=== PATIENT | female | born 1940 | race Two or more races ===

== ENCOUNTER 2020-02-05 14:41 | Emergency (ER) | payer SELFPAY ==
[~2020-02-05] VITALS: Ht 157.5 cm; Wt 68.0 kg
--- NOTE | 2020-02-05 15:30 | RAD ---
PORTABLE CHEST 1V History: Reason: SOA / Spl. Instructions: / History: Comparison: None. Findings: No consolidation or pleural effusion. Normal heart size. No pneumothorax. Impression: 1. No acute cardiopulmonary process. Electronically signed by: Bucky Morocho DO (02/05/2020 3:27 PM) [id number]
[2020-02-05 15:52] LABS: BASO # 0.1 x10^3/uL (0.0-0.2); BASO % 1 % (0-3); EOS # 0.2 x10^3/uL (0.0-0.7); EOS % 2 % (0-3); HEMATOCRIT 38.9 % (36.0-47.0); LYMPH # 1.7 x10^3/uL (1.0-4.8); LYMPH % 21 % (24-48); MEAN CORPUSCULAR HEMOGLOBIN 34 pg (25-35); MEAN CORPUSCULAR HGB CONC 36 g/dL (31-37); MEAN CORPUSCULAR VOLUME 94 fL (79-100); MONO # 0.5 x10^3/uL (0.0-1.1); MONO % 7 % (0-9); NEUT # 5.8 x10^3/uL (1.8-7.7); NEUT % 70 % (31-73); PLATELET COUNT 170 x10^3/uL (140-400); RED BLOOD COUNT 4.12 x10^6/uL (3.50-5.40); RED CELL DISTRIBUTION WIDTH 12.9 % (11.5-14.5); WHITE BLOOD COUNT 8.2 x10^3/uL (4.0-11.0)
[2020-02-05 15:53] LABS: BILIRUBIN,URINE NEGATIVE (NEG); CLARITY,URINE CLEAR; COLOR,URINE YELLOW; NITRITE,URINE NEGATIVE (NEG); PH,URINE 7.5 (<5.0-8.0); PROTEIN,URINE NEGATIVE (NEG-TRACE)
[2020-02-05 16:05] LABS: BACTERIA,URINE FEW /HPF (0-FEW); RBC,URINE 0 /HPF (0-2); WBC,URINE OCC /HPF (0-4)
--- NOTE | 2020-02-05 16:07 | PHYS DOC ---
Past Medical History Past Medical History: Diabetes-Type II, Hypertension (CAROLE PORTILLO HIDE AND SKIN CLASSER) Past Surgical History: No Surgical History (CAROLE PORTILLO HIDE AND SKIN CLASSER) Smoking Status: Never Smoker Alcohol Use: None (CAROLE PORTILLO APRN) General Adult EDM: Chief Complaint: SHORTNESS OF BREATH HPI: HPI: Patient is a 79 year old female who presents with states for the last 16 days when she goes to stand up she gets dizzy and feels like she is going to fall. She states today that she began having some shortness of breath and left arm numbness. Patient states that her recently. She also states that she feels " swollen from her neck up to her head". She states the shortness of air started today. She states she is also been having more frequent urination than usual. She states she always has some frequency of urination due to her diabetes. She states that this time she has no pain but her head just" feels weird". She states that the room is not spinning she does not currently feel dizzy. She states she does have fatigue. Patient states that she does not use a cane or a walker at home. She states she does not smoke or use alcohol. She states she takes a baby aspirin a day. She has a history of high cholesterol, diabetes, hypertension, osteoporosis. Patient denies nausea, vomiting, abdominal pain, cough, fever, chest pain, abdominal pain, headache, diarrhea, constipation, vision changes, focal weakness. (CAROLE PORTILLO HIDE AND SKIN CLASSER) Review of Systems: Review of Systems: Constitutional: Denies fever or chills. [] Eyes: Denies change in visual acuity. [] HENT: Denies nasal congestion or sore throat. [] Respiratory: Denies cough. +shortness of breath. [] Cardiovascular: Denies chest pain or edema. [] GI: Denies abdominal pain, nausea, vomiting, bloody stools or diarrhea. [] : Denies dysuria. [] Musculoskeletal: Denies back pain or joint pain. [] Integument: Denies rash. [] Neurologic: Denies headache, focal weakness or sensory changes. + Dizziness, + numbness Endocrine: Denies polyuria or polydipsia. [] Lymphatic: Denies swollen glands. [] Psychiatric: Denies depression or anxiety. [] (BAFCAROLE AVINA HIDE AND SKIN CLASSER) Heart Score: Risk Factors: Risk Factors: DM, Current or recent (<one month) smoker, HTN, HLP, family history of CAD, obesity. Risk Scores: Score 0 - 3: 2.5% MACE over next 6 weeks - Discharge Home Score 4 - 6: 20.3% MACE over next 6 weeks - Admit for Clinical Observation Score 7 - 10: 72.7% MACE over next 6 weeks - Early Invasive Strategies ([facility] Allergies: Allergies: Allergies Coded Allergies Type Severity Reaction Last Updated Verified No Known Drug Allergies 02/05/20 No ([facility] Physical Exam: PE: Constitutional: Well developed, well nourished, no acute distress, non-toxic appearance. [] HENT: Normocephalic, atraumatic, bilateral external ears normal, oropharynx moist, no oral exudates, nose normal. [] Eyes: PERRLA, EOMI, conjunctiva normal, no discharge. [] Neck: Normal range of motion, no tenderness, supple, no stridor. [] Cardiovascular:Heart rate regular rhythm, no murmur [] Lungs & Thorax: Bilateral breath sounds clear to auscultation [] Abdomen: Bowel sounds normal, soft, no tenderness, no masses, no pulsatile masses. [] Skin: Warm, dry, no erythema, no rash. [] Back: No tenderness, no CVA tenderness. [] Extremities: No tenderness, no cyanosis, no clubbing, ROM intact, no edema. [] Neurologic: Alert and oriented X 3, normal motor function, normal sensory function, no focal deficits noted. [] Psychologic: Affect normal, judgement normal, mood normal. [] ([facility] [place],CAROLE Chavez HIDE AND SKIN CLASSER) Current Patient Data: Labs: Laboratory Tests Test 02/05/20 15:45 White Blood Count 8.2 x10^3/uL (4.0-11.0) Red Blood Count 4.12 x10^6/uL (3.50-5.40) Hemoglobin 14.0 g/dL (12.0-15.5) Hematocrit 38.9 % (36.0-47.0) Mean Corpuscular Volume 94 fL (79-100) Mean Corpuscular Hemoglobin 34 pg (25-35) Mean Corpuscular Hemoglobin Concent 36 g/dL (31-37) Red Cell Distribution Width 12.9 % (11.5-14.5) Platelet Count 170 x10^3/uL (140-400) Neutrophils (%) (Auto) 70 % (31-73) Lymphocytes (%) (Auto) 21 % (24-48) L Monocytes (%) (Auto) 7 % (0-9) Eosinophils (%) (Auto) 2 % (0-3) Basophils (%) (Auto) 1 % (0-3) Neutrophils # (Auto) 5.8 x10^3/uL (1.8-7.7) Lymphocytes # (Auto) 1.7 x10^3/uL (1.0-4.8) Monocytes # (Auto) 0.5 x10^3/uL (0.0-1.1) Eosinophils # (Auto) 0.2 x10^3/uL (0.0-0.7) Basophils # (Auto) 0.1 x10^3/uL (0.0-0.2) Laboratory Tests 02/05/20 15:45 Vital Signs: Vital Signs Date Time Temp Pulse Resp B/P (MAP) Pulse Ox O2 Delivery O2 Flow Rate FiO2 02/05/20 15:25 97.9 54 18 152/62 (92) 99 Room Air 97.9 (CAROLE PORTILLO APRN) EKG: EK and read by Dr. Bravo as Sinus Rhythm and no STEMI (CAROLE PORTILLO APRN) Radiology/Procedures: Radiology/Procedures: [] Impression: [facility] [address] [place] [address] IMAGING REPORT Signed PATIENT: KAMRON STEWARDACCOUNT: [id number] : 1940 LOCATION: ER AGE: 79 SEX: F EXAM STATUS: PRE ER ORD. PHYSICIAN: CAROLE PORTILLO APRN REASON: SOA PROCEDURE: PORTABLE CHEST 1V PORTABLE CHEST 1V History: Reason: SOA / Spl. Instructions: / History: Comparison: None. Findings: No consolidation or pleural effusion. Normal heart size. No pneumothorax. Impression: 1. No acute cardiopulmonary process. Electronically signed by: Bucky Morocho DO (02/05/2020 3:27 PM) [id number] DICTATED and SIGNED BY: BUCKY MOROCHO DO DATE: 02/05/20 1527 [facility] [address] [place] [address] IMAGING REPORT Signed PATIENT: KAMRON STEWARDACCOUNT: [id number] : 1940 LOCATION: ER AGE: 79 SEX: F EXAM STATUS: PRE ER ORD. PHYSICIAN: CAROLE PORTILLO APRN REASON: DIZZINESS PROCEDURE: CT HEAD WO CONTRAST Exam: CT head INDICATION: Dizziness TECHNIQUE: Sequential axial images through the head were obtained without the administration of IV contrast. Comparisons: None FINDINGS: No focal parenchymal lesion or hemorrhage is identified. There is no midline shift or sulcal effacement. No acute vascular territory infarction is identified. Khan-white distinction is preserved. The ventricular system is within normal limits without compression hydrocephalus. The basal cisterns are well maintained. The visualized portions of the paranasal sinuses and mastoid air cells are well-pneumatized. No acute fractures. IMPRESSION: No acute intracranial abnormality. Exposure: One or more of the following in the visualized dose reduction techniques were utilized for this examination: 1. Automated exposure control 2. Adjustment of the MA and/or KV according to patient size Use of iterative of reconstructive technique Electronically signed by: Amanda Garcia MD (02/05/2020 4:05 PM) [facility]ENT[facility] DICTATED and SIGNED BY: AMANDA GARCIA MD DATE: 02/05/20 1605 (CAROLE PORTILLO APRN) Course & Med Decision Making: Course & Med Decision Making Pertinent Labs and Imaging studies reviewed. (See chart for details) See HPI. No peripheral edema in any extremities. Lungs are clear to auscultation all lobes. Vital signs are within normal limits. Speaks in full clear sentences. Alert and oriented x4. Patient is Greenlandic-speaking and box spring frame builder phone is used. EKG shows sinus rhythm and no STEMI. Abdomen is soft and nontender. Skin is pink warm and dry. NIH is negative. Patient sensations are intact and equal. Finger-nose to finger is intact. Blood work is unremarkable. Urinalysis shows no infection. Chest x-ray is normal. EKG shows no findings. Orthostatics normal. Patient is gotten up by the nurse to walk and she does have a steady gait. Patient states that she is not dizzy but she is short of breath. Patient does put her hand up to her chest and denies pain but just soa. O2 saturation did not go down while ambulating. Patient will be brought in to rule out ACS due to her age and her continued shortness of breath. Patient admitted to the hospital by Hospitalist. [] (CAROLE PORTILLO APRN) Dragon Disclaimer: Dragon Disclaimer: This electronic medical record was generated, in whole or in part, using a voice recognition dictation system. (CAROLE PORTILLO APRN) NIHSS Stroke Scale NIH Stroke Scale: NIH Stroke Scale Response (Comments) Value Level of Consciousness: 0 Alert/Responsive 0 LOC Questions: 0 Answers both correctly 0 LOC Commands: 0 Performs both tasks 0 Best Gaze: 0 Normal 0 Visual: 0 No visual loss 0 Facial Palsy: 0 Normal, symmetrical 0 Motor - Left Arm 0 No drift 0 Motor - Right Arm 0 No drift 0 Motor - Left Leg 0 No drift 0 Motor: Right Leg 0 No drift 0 Limb Ataxia: 0 Absent 0 Sensory: 0 No loss 0 Best Language: 0 Normal 0 Dysathria: 0 Normal 0 Extinction and Inattention: 0 Normal 0 Total 0 Departure Departure Impression: Primary Impression: Dizzinesses Disposition: ADMITTED INPT THIS HOSP Admitting Physician: ROHAN (CAROLE PORTILLO APRN) Condition: STABLE Attending Signature Attending Signature I have reviewed the non-physician practitioner's documentation, personally taken the patient's history, performed an exam and agree with the physical findings, clinical impression, and management plan. (MIRI BRAVO DO) CAROLE PORTILLO APRN Feb 05, 2020 16:07 MIRI BRAVO DO Feb 05, 2020 17:44
[2020-02-05 16:10] LABS: CALCIUM 9.1 mg/dL (8.5-10.1); CREATININE 0.9 mg/dL (0.6-1.0); GFR 60.7; POTASSIUM 3.7 mmol/L (3.5-5.1)
[2020-02-05 16:15] LABS: ALBUMIN 3.7 g/dL (3.4-5.0); ALBUMIN/GLOBULIN RATIO 1.2 (1.0-1.7); TOTAL BILIRUBIN 0.5 mg/dL (0.2-1.0); TOTAL PROTEIN 6.9 g/dL (6.4-8.2)
[2020-02-05] MEDS ORDERED: methylPREDNISolone SOD SUCC PF 40 MG/ML VIAL. IV ONE (17:15)
[2020-02-05] MEDS ORDERED: ALBUTEROL SULFATE 2.5 MG/3 ML NEBU. NEB ONE (17:15)
[2020-02-05] MEDS ORDERED: guaiFENesin ORAL 200 MG/10 ML LIQUID. PO PRN (17:45)
[2020-02-05] MEDS ORDERED: DOCUSATE SODIUM 100 MG CAPSULE. PO PRN (17:45)
[2020-02-05] MEDS ORDERED: MECLIZINE HCL 12.5 MG TABLET. PO PRN (17:45)
[2020-02-05] MEDS ORDERED: ALBUTEROL SULFATE 2.5 MG/3 ML NEBU. NEB PRN (17:45)
[2020-02-05] MEDS ORDERED: LORazepam 0.5 MG TABLET PO PRN (17:45)
[2020-02-05] MEDS ORDERED: ACETAMINOPHEN 325 MG TABLET. PO PRN (17:45)
[2020-02-05] MEDS ORDERED: ONDANSETRON PF 4 MG/2 ML VIAL. IV PRN (17:45)
[2020-02-05] MEDS ORDERED: ZOLPIDEM 5 MG TABLET. PO PRN (17:45)
[2020-02-05 18:30] VITALS: BP 157/72
[2020-02-05] MEDS ORDERED: MIRT15TA90 PO (18:34)
--- NOTE | 2020-02-05 18:42 | PDOC2 ---
CONSULT Date of Consult Date of Consult DATE: 02/05/20 TIME: 18:34 Reason for Consult Reason for Consult: Dizziness Identification/Chief Complaint Chief Complaint I felt suffocated Source Source: Chart review, Patient History of Present Illness Reason for Visit: Patient is a 79 year old female with no significant past medical history who unfortunately just lost her about 1 week ago. Patient comes today to the emergency department brought by her family after having the sensation that she could not breathe while eating. The patient denied any dysphagia odynophagia she did not present slurred speech she did not have facial drooping. The patient had been seen at [facility] earlier in the day due to the similar symptoms that she describes as not being able to take a deep breath and a sensation of impending doom in her chest that is brought upon memories of her . The patient misses her very much and gets teary-eyed very quickly when asked about him. During my interview the patient denied any suicidal thoughts, she just expresses missing her quite a lot. The patient denied headache blurred vision no chest pain no palpitations she does referred that chest discomfort that she feels more of a nauseous feeling in her chest due to anxiety. The patient denied any ringing in ears she does not have an unsteady gait report from ED SCIENTIFIC INFORMATICS LEADER suggested that the patient may be having dizziness nevertheless when questioned about feeling this sensation of room spinning the patient denied [id number] was intact [id number] was intact the patient did not present any nystagmus on physical examination. She did not exhibit any focal neurological deficits of concern. She denied nausea vomiting no diarrhea no urinary symptoms were reported either. Laboratory data was reviewed and is absolutely normal except for a glycemia of 136 which more than likely was after she was brought from her house while having her meal. I have spoken with her family members who were at the waiting area informed her about the results and wishes of the patient to be going home instead of being ad mitted to the hospital. Signs and symptoms of concern and when to seek medical attention were discussed with the family, side effects of the medication were discussed as well. We will provide the patient with a prescription for Remeron 15 mg at bedtime which should help with mood over the next couple weeks while she endures her bereavement process. Past Medical History Cardiovascular: No pertinent hx Pulmonary: No pertinent hx GI: No pertinent hx Heme/Onc: No pertinent hx Hepatobiliary: No pertinent hx Psych: No pertinent hx Musculoskeletal: low back pain Rheumatologic: No pertinent hx Infectious disease: No pertinent hx ENT: No pertinent hx Renal/: No pertinent hx Past Surgical History Past Surgical History: No pertinent history Family History Family History: No Significant Social History No ALCOHOL: none Drugs: None Lives: with Family Domestic Violence: Neg Current Problem List Problem List Problems Medical Problems: (1) Dizzinesses Status: Acute Current Medications Current Medications Current Medications Albuterol Sulfate (Ventolin Neb Soln) 2.5 mg 1X ONCE NEB Last administered on 02/05/20at 17:39; Start 02/05/20 at 17:15; Stop 02/05/20 at 17:16; Status DC Methylprednisolone Sodium Succinate (SOLU-Medrol 40MG VIAL) 80 mg 1X ONCE IV ; Start 02/05/20 at 17:15; Stop 02/05/20 at 17:16; Status DC Ondansetron HCl (Zofran) 4 mg PRN Q4HRS PRN IV NAUSEA/VOMITING; Start 02/05/20 at 17:45 Zolpidem Tartrate (Ambien) 5 mg PRN QHS PRN PO INSOMNIA; Start 02/05/20 at 17:45 Acetaminophen (Tylenol) 650 mg PRN Q4HRS PRN PO TEMP OVER 100.4F OR MILD PAIN; Start 02/05/20 at 17:45 Docusate Sodium (Colace) 100 mg PRN BID PRN PO HARD STOOLS; Start 02/05/20 at 17:45 Albuterol Sulfate (Ventolin Neb Soln) 2.5 mg PRN Q4HRS PRN NEB SHORTNESS OF BREATH; Start 02/05/20 at 17:45 Guaifenesin (Robitussin) 200 mg PRN Q4HRS PRN PO COUGH; Start 02/05/20 at 17:45 Lorazepam (Ativan) 0.5 mg PRN Q4HRS PRN PO ANXIETY / AGITATION; Start 02/05/20 at 17:45 Meclizine HCl (Antivert) 12.5 mg Q6HRS PRN PO dizziness; Start 02/05/20 at 17:45 Active Scripts Active Mirtazapine 15 Mg Tab.rapdis 1 Tab PO QHS 30 Days Allergies Allergies: Coded Allergies: No Known Drug Allergies (Unverified , 02/05/20) ROS General: No: Chills, Night Sweats, Fatigue, Malaise, Appetite, Other PSYCHOLOGICAL ROS: No: Anxiety, Behavioral Disorder, Concentration difficultie, Decreased libido, Depression, Disorientation, Hallucinations, Hostility, Irritablity, Memory difficulties, Mood Swings, Obsessive thoughts, Physical abuse, Sexual abuse, Sleep disturbances, Suicidal ideation, Other Eyes: No Blurry vision, No Decreased vision, No Double vision, No Dry eyes, No Excessive tearing, No Eye Pain, No Itchy Eyes, No Loss of vision, No Photophobia, No Scotomata, No Uses contacts, No Uses glasses, No Other HEENT: No: Heacaches, Visual Changes, Hearing change, Nasal congestion, Nasal discharge, Oral lesions, Sinus pain, Sore Throat, Epistaxis, Sneezing, Snoring, Tinnitus, Vertigo, Vocal changes, Other ALLERGY AND IMMUNOLOGY: No: Hives, Insect Bite Sensitivity, Itchy/Watery Eyes, Nasal Congestion, Post Nasal Drip, Seasonal Allergies, Other Hematological and Lymphatic: No: Bleeding Problems, Blood Clots, Blood Transfusions, Brusing, Night Sweats, Pallor, Swollen Lymph Nodes, Other ENDOCRINE: No: Breast Changes, Galactorrhea, Hair Pattern Changes, Hot Flashes, Malaise/lethargy, Mood Swings, Palpitations, Polydipsia/polyuria, Skin Changes, Temperature Intolerance, Unexpected Weight Changes, Other Breast: No New/Changing Breast Lumps, No Nipple changes, No Nipple discharge, No Other Respiratory: No: Cough, Hemoptysis, Orthopnea, Pleuritic Pain, Shortness of breath, SOB with excertion, Sputum Changes, Stridor, Tachypnea, Wheezing, Other Cardiovascular: No Chest Pain, No Palpitations, No Orthopnea, No Paroxysmal Noc. Dyspnea, No Edema, No Lt Headedness, No Other Gastrointestinal: No Nausea, No Vomiting, No Abdominal Pain, No Diarrhea, No Constipation, No Melena, No Hematochezia, No Other Genitourinary: No Dysuria, No Frequency, No Incontinence, No Hematuria, No Retention, No Discharge, No Urgency, No Pain, No Flank Pain, No Other, No , No , No , No , No , No , No Musculoskeletal: No Gait Disturbance, No Joint Pain, No Joint Stiffness, No Joint Swelling, No Muscle Pain, No Muscular Weakness, No Pain In:, No Swelling In:, No Other Neurological: No Behavorial Changes, No Bowel/Bladder ControlChng, No Confusion, No Dizziness, No Gait Disturbance, No Headaches, No Impaired Coord/balance, No Memory Loss, No Numbness/Tingling, No Seizures, No Speech Problems, No Tremors, No Visual Changes, No Weakness, No Other Skin: No Dry Skin, No Eczema, No Hair Changes, No Lumps, No Mole Changes, No Mottling, No Nail Changes, No Pruritus, No Rash, No Skin Lesion Changes, No Other, No Acne Physical Exam Physical Exam Gen.: well-developed well-nourished in no apparent distress Head: Normal shape atraumatic Eyes: Pupils equal reactive to light and accommodation, normal conjunctivae and lids Ears: Normal shape Nose: Normal shape no trauma Mouth: No exudates of the back of throat no thrush no lesions Neck: Supple no JVD no carotid bruit or lymphadenopathy no thyromegaly Chest: Lungs clear to auscultation with good inspiratory effort no crackles rales or rhonchi Cardiovascular: S1-S2 regular rhythm no murmurs gallops or rubs Abdomen: Bowel sounds present soft nontender no hepatosplenomegaly appreciated sign Extremities: No clubbing no cyanosis no edema peripheral pulses palpated bilaterally Neurological: Alert awake oriented in person time place and situation, cranial nerves II through XII intact, no motor or sensory deficits appreciated Psych: Appropriate mood, cooperative Vitals VITALS Vital Signs Date Time Temp Pulse Resp B/P (MAP) Pulse Ox O2 Delivery O2 Flow Rate FiO2 02/05/20 17:41 96 Room Air 02/05/20 15:25 97.9 54 18 152/62 (92) 97.9 Labs Labs Laboratory Tests Test 02/05/20 15:00 02/05/20 15:45 Urine Collection Type Unknown Urine Color Yellow Urine Clarity Clear Urine pH 7.5 (<5.0-8.0) Urine Specific [place] <=1.005 (1.000-1.030) Urine Protein Negative mg/dL (NEG-TRACE) Urine Glucose (UA) Negative mg/dL (NEG) Urine Ketones (Stick) Negative mg/dL (NEG) Urine Blood Negative (NEG) Urine Nitrite Negative (NEG) Urine Bilirubin Negative (NEG) Urine Urobilinogen Dipstick 1.0 mg/dL (0.2 mg/dL) Urine Leukocyte Esterase Negative (NEG) Urine RBC 0 /HPF (0-2) Urine WBC Occ /HPF (0-4) Urine Squamous Epithelial Cells Occ /LPF Urine Bacteria Few /HPF (0-FEW) White Blood Count 8.2 x10^3/uL (4.0-11.0) Red Blood Count 4.12 x10^6/uL (3.50-5.40) Hemoglobin 14.0 g/dL (12.0-15.5) Hematocrit 38.9 % (36.0-47.0) Mean Corpuscular Volume 94 fL (79-100) Mean Corpuscular Hemoglobin 34 pg (25-35) Mean Corpuscular Hemoglobin Concent 36 g/dL (31-37) Red Cell Distribution Width 12.9 % (11.5-14.5) Platelet Count 170 x10^3/uL (140-400) Neutrophils (%) (Auto) 70 % (31-73) Lymphocytes (%) (Auto) 21 % (24-48) Monocytes (%) (Auto) 7 % (0-9) Eosinophils (%) (Auto) 2 % (0-3) Basophils (%) (Auto) 1 % (0-3) Neutrophils # (Auto) 5.8 x10^3/uL (1.8-7.7) Lymphocytes # (Auto) 1.7 x10^3/uL (1.0-4.8) Monocytes # (Auto) 0.5 x10^3/uL (0.0-1.1) Eosinophils # (Auto) 0.2 x10^3/uL (0.0-0.7) Basophils # (Auto) 0.1 x10^3/uL (0.0-0.2) Sodium Level 141 mmol/L (136-145) Potassium Level 3.7 mmol/L (3.5-5.1) Chloride Level 105 mmol/L (98-107) Carbon Dioxide Level 30 mmol/L (21-32) Anion Gap 6 (6-14) Blood Urea Nitrogen 15 mg/dL (7-20) Creatinine 0.9 mg/dL (0.6-1.0) Estimated GFR (Cockcroft-Gault) 60.7 BUN/Creatinine Ratio 17 (6-20) Glucose Level 136 mg/dL (70-99) Calcium Level 9.1 mg/dL (8.5-10.1) Total Bilirubin 0.5 mg/dL (0.2-1.0) Aspartate Amino Transf (AST/SGOT) 19 U/L (15-37) Alanine Aminotransferase (ALT/SGPT) 23 U/L (14-59) Alkaline Phosphatase 58 U/L (46-116) Troponin I Quantitative < 0.017 ng/mL (0.000-0.055) OB-Mxe-J-Type Natriuretic Peptide 169 pg/mL (0-449) Total Protein 6.9 g/dL (6.4-8.2) Albumin 3.7 g/dL (3.4-5.0) Albumin/Globulin Ratio 1.2 (1.0-1.7) Laboratory Tests Test 02/05/20 15:00 02/05/20 15:45 Urine Collection Type Unknown Urine Color Yellow Urine Clarity Clear Urine pH 7.5 (<5.0-8.0) Urine Specific [place] <=1.005 (1.000-1.030) Urine Protein Negative mg/dL (NEG-TRACE) Urine Glucose (UA) Negative mg/dL (NEG) Urine Ketones (Stick) Negative mg/dL (NEG) Urine Blood Negative (NEG) Urine Nitrite Negative (NEG) Urine Bilirubin Negative (NEG) Urine Urobilinogen Dipstick 1.0 mg/dL (0.2 mg/dL) Urine Leukocyte Esterase Negative (NEG) Urine RBC 0 /HPF (0-2) Urine WBC Occ /HPF (0-4) Urine Squamous Epithelial Cells Occ /LPF Urine Bacteria Few /HPF (0-FEW) White Blood Count 8.2 x10^3/uL (4.0-11.0) Red Blood Count 4.12 x10^6/uL (3.50-5.40) Hemoglobin 14.0 g/dL (12.0-15.5) Hematocrit 38.9 % (36.0-47.0) Mean Corpuscular Volume 94 fL (79-100) Mean Corpuscular Hemoglobin 34 pg (25-35) Mean Corpuscular Hemoglobin Concent 36 g/dL (31-37) Red Cell Distribution Width 12.9 % (11.5-14.5) Platelet Count 170 x10^3/uL (140-400) Neutrophils (%) (Auto) 70 % (31-73) Lymphocytes (%) (Auto) 21 % (24-48) Monocytes (%) (Auto) 7 % (0-9) Eosinophils (%) (Auto) 2 % (0-3) Basophils (%) (Auto) 1 % (0-3) Neutrophils # (Auto) 5.8 x10^3/uL (1.8-7.7) Lymphocytes # (Auto) 1.7 x10^3/uL (1.0-4.8) Monocytes # (Auto) 0.5 x10^3/uL (0.0-1.1) Eosinophils # (Auto) 0.2 x10^3/uL (0.0-0.7) Basophils # (Auto) 0.1 x10^3/uL (0.0-0.2) Sodium Level 141 mmol/L (136-145) Potassium Level 3.7 mmol/L (3.5-5.1) Chloride Level 105 mmol/L (98-107) Carbon Dioxide Level 30 mmol/L (21-32) Anion Gap 6 (6-14) Blood Urea Nitrogen 15 mg/dL (7-20) Creatinine 0.9 mg/dL (0.6-1.0) Estimated GFR (Cockcroft-Gault) 60.7 BUN/Creatinine Ratio 17 (6-20) Glucose Level 136 mg/dL (70-99) Calcium Level 9.1 mg/dL (8.5-10.1) Total Bilirubin 0.5 mg/dL (0.2-1.0) Aspartate Amino Transf (AST/SGOT) 19 U/L (15-37) Alanine Aminotransferase (ALT/SGPT) 23 U/L (14-59) Alkaline Phosphatase 58 U/L (46-116) Troponin I Quantitative < 0.017 ng/mL (0.000-0.055) IJ-Syb-A-Type Natriuretic Peptide 169 pg/mL (0-449) Total Protein 6.9 g/dL (6.4-8.2) Albumin 3.7 g/dL (3.4-5.0) Albumin/Globulin Ratio 1.2 (1.0-1.7) Assessment/Plan Assessment/Plan Bereavement secondary to loss of her Hyperglycemia Overweight with a BMI of 27 Recommendations: I recommended her family to stay attentive to her needs and provide support and comfort Mirtazapine will be given 50 mg at bedtime Signs and symptoms of concern when to seek medical attention was discussed prior to discharge Patient is medically stable for discharge at this time GUIDO STALLINGS MD Feb 05, 2020 18:42
--- NOTE | 2020-02-05 19:08 | EKG ---
[facility] [address] [place] [address] Test Date: 2020-02-05 Test Time: 15:36:16 Pat Name: KAMRON STEWARD Department: Room: Gender: F Orthotic And Prosthetic Technician: : 1940 Requested By: CAROLE PORTILLO Order Number: [id number] Reading MD: Measurements Intervals [place] Rate: 56 P: 52 WA: 162 QRS: 52 QRSD: 84 T: 73 QT: 450 QTc: 437 Interpretive Statements SINUS RHYTHM ST & T ABNORMALITY, CONSIDER HIGH LATERAL ISCHEMIA OR LEFT VENTRICULAR STRAIN ABNORMAL ECG RI6.02 No previous ECG available for comparison
== END 2020-02-05 19:00 | disposition home or self-care (01) ==
LOC: ER 14:41 → 5 NORTH 17:39 → UNDOADMOB 17:39
DX: R42 Dizziness and giddiness (principal); R06.02 Shortness of breath; R20.0 Anesthesia of skin; E11.9 Type 2 diabetes mellitus without complications; I10 Essential (primary) hypertension
CPT/HCPCS: 36415; 70450; 71045; 80053; 81001; 83880; 84484; 85025; 93005; 94640; 99285; J7613

== ENCOUNTER 2021-04-24 11:23 | Emergency (ER) | payer SELFPAY ==
[~2021-04-24] VITALS: Ht 154.9 cm; Wt 54.8 kg
[~2021-04-24 11:23] MED LIST: MIRT15TA90 PO
--- NOTE | 2021-04-24 12:58 | PHYS DOC ---
Past Medical History Past Medical History: Diabetes-Type II, Hypertension Past Surgical History: No Surgical History Smoking Status: Never Smoker Alcohol Use: None General Adult EDM: Chief Complaint: MECHANICAL FALL HPI: HPI: Patient is a 80 year old female who presents after a fall last night at home. Family states that patient woke up on the floor between her nightstand and her bed. Patient reporting right sided chin pain, right breast pain, right knee pain. Patient denies head pain, back pain, shortness of breath. Unknown loss of consciousness. Patient was ambulatory on arrival. Denies being on blood thinners. Denies taking anything for pain prior to arrival. Review of Systems: Review of Systems: ROS At least 10 ROS systems have been reviewed and are negative except as documented in the HPI. General: Negative except as outlined in HPI above. Skin: Negative except as outlined in HPI above. HEENT: Negative except as outlined in HPI above. Neck: Negative except as outlined in HPI above. Respiratory: Negative except as outlined in HPI above.. Cardiovascular: Negative except as outlined in HPI above. Abdomen: Negative except as outlined in HPI above. : Negative except as outlined in HPI above. Back/MSK: Negative except as outlined in HPI above. Neuro: Negative except as outlined in HPI above. Psych: Negative except as outlined in HPI above. Heart Score: C/O Chest Pain: No Risk Factors: Risk Factors: DM, Current or recent (<one month) smoker, HTN, HLP, family history of CAD, obesity. Risk Scores: Score 0 - 3: 2.5% MACE over next 6 weeks - Discharge Home Score 4 - 6: 20.3% MACE over next 6 weeks - Admit for Clinical Observation Score 7 - 10: 72.7% MACE over next 6 weeks - Early Invasive Strategies Allergies: Allergies: Allergies Coded Allergies Type Severity Reaction Last Updated Verified No Known Drug Allergies 02/05/20 No Physical Exam: PE: Constitutional: Well developed, well nourished, no acute distress, non-toxic appearance. [] HENT: Normocephalic, atraumatic, bilateral external ears normal, oropharynx moist, no oral exudates, nose normal. [] Eyes: PERRLA, EOMI, conjunctiva normal, no discharge. [] Neck: Normal range of motion, no tenderness, supple, no stridor. [] Cardiovascular:Heart rate regular rhythm, no murmur [] Lungs & Thorax: Bilateral breath sounds clear to auscultation [] Abdomen: Bowel sounds normal, soft, no tenderness, no masses, no pulsatile masses. [] Skin: Bruising to right lower chin, bruising to right breast Back: No tenderness, no CVA tenderness. [] Extremities: Right knee tenderness, no cyanosis, no clubbing, ROM intact, no edema. [] Neurologic: Alert and oriented X 3, normal motor function, normal sensory function, no focal deficits noted. [] Psychologic: Affect normal, judgement normal, mood normal. [] Current Patient Data: Vital Signs: Vital Signs Date Time Temp Pulse Resp B/P (MAP) Pulse Ox O2 Delivery O2 Flow Rate FiO2 04/24/21 11:37 97.2 64 12 140/38 (72) 99 Room Air 97.2 EKG: EKG: [] Radiology/Procedures: Radiology/Procedures: []CT CERVICAL SPINE WO, CT HEAD AND MAXILLOFACIAL WO Date: 04/24/2021 12:39 PM Clinical Indication: FALL, pain Comparison: None. Technique: Axial computed tomographic images were obtained of the head, maxillofacial structures, and cervical spine without contrast. Multiplanar reconstructions were performed. One or more of the following dose reduction techniques were utilized: Automated exposure control (AEC), Adjustment of mA and/or kV according to patient size, Use of iterative reconstruction technique such as ASiR, CT scan done according to ALARA and image gently/image wisely CT Head Findings: Mild generalized cerebral and cerebellar volume loss. Mild nonspecific pe riventricular hypoattenuation, most commonly seen with chronic small vessel ischemic disease. No intra- or extra-axial mass or fluid collection. No acute hemorrhage. The ventricles are normal in size, shape, and morphology. The palomino-white matter junction is normal. The basilar cisterns are patent. The mastoid air cells are clear. No aggressive osseous lesion or fracture. CT Face Findings: There is no acute facial bone fracture. The paranasal sinuses are clear. Nasal septum is slightly deviated to the right The orbits are normal. The globes are intact. CT Cervical Spine Findings: The cervical spine is normally aligned. No acute fracture. No aggressive lytic or blastic osseous lesions. Moderate multilevel degenerative disc space height loss. Multilevel mild spinal canal stenosis secondary to disc protrusions and marginal osteophytes. Multilevel moderate neuroforaminal narrowing secondary to uncovertebral arthrosis. Multilevel moderate facet arthrosis. The thyroid gland is normal. No cervical lymphadenopathy. Bilateral carotid atherosclerosis. The visualized aerodigestive tract is normal. The visualized portions of the lungs are clear. Impression: 1. No acute intracranial process. 2. No acute facial bone fracture. 3. No acute osseous abnormality of the cervical spine Electronically signed by: Petar Bob MD (04/24/2021 1:30 PM) [id number] EXAM: Chest and right ribs, 3 views. HISTORY: Fall. COMPARISON: None. FINDINGS: A frontal view of the chest and 2 views of the right ribs are obtaine d. There is no fracture, dislocation or subluxation. The heart is normal in size. No displaced rib fracture is seen. IMPRESSION: No acute pulmonary or osseous finding. Electronically signed by: Yenny Dockery MD (04/24/2021 1:35 PM) [id number] Course & Med Decision Making: Course & Med Decision Making Pertinent Labs and Imaging studies reviewed. (See chart for details) [] 80-year-old female presents after a fall last night. Patient woke up between her nightstand in bed. Work-up in ER consisted of EKG, rib and chest x-ray, maxillofacial, CT head and spine. Patient is refusing anything for pain at this time. Patient is alert and oriented. Patient ambulatory on arrival. All images unremarkable. No signs of fracture or acute abnormality. Discussed results with granddaughter and patient. Advised patient to take Tylenol or ibuprofen for discomfort at home. She can use ice to the injured areas. Patient should follow-up with her PCP in the next 1 to 2 days for further management if pain continues. Discussed return precautions in length. Patient verbalizes understanding. Patient is hemodynamically stable and able to ambulate on her own out of the ER. Dragon Disclaimer: Rohit Disclaimer: This electronic medical record was generated, in whole or in part, using a voice recognition dictation system. Departure Departure Impression: Primary Impression: Fall Qualified Codes: W19.XXXA - Unspecified fall, initial encounter Disposition: HOME / SELF CARE / HOMELESS Condition: STABLE Referrals: UNKNOWN PCP NAME (PCP) Patient Instructions: Fall Prevention and Home Safety, [id number], RICE - Routine Care for Injuries, [id number] Additional Instructions: You are seen in the emergency room after a fall. All of your images were unrem arkable. Please follow-up with your PCP in the next 1 to 2 days if symptoms do not improve. Return to the emergency room if you have altered mental status, vomiting or any concerns or worsening symptoms EMERGENCY DEPARTMENT GENERAL DISCHARGE INSTRUCTIONS Thank you for coming to [facility] Emergency Department (ED) today and trusting us with you care. We trust that you had a positive experience in our Emergency Department. If you wish to speak to the department management, you may call the Director at [phone]. YOUR FOLLOW UP INSTRUCTIONS ARE FOLLOWS: 1. Do you have a private Doctor? If you do not have a private doctor, please ask for a resource list of physicians or clinics that may be able to assist you with follow up care. 2. The Emergency Physicain has interpreted your x-rays. The X-Ray specialist will also review them. If there is a change in the findings, you will be notified in 48 hours when at all possible. 3. A lab test or culture has been done, your results will be reviewed and you will be notified if you need a change in treatment. ADDITIONAL INSTRUCTIONS AND INFORMATION: 1. Your care today has been supervised by a physician who is specially trained in emergency care. Many problems require more than one evaluation for a complete diagnosis and treatment. We recommend that you schedule your follow up appointment as recommended to ensure complete treatment of you illness or injury. If you are unable to obtain follow up care and continue to have a problem, or if your condition worsens, we recommend that you return to the ED. 2. We are not able to safely determine your condition over the phone nor are we able to give sound medical advice over the phone. For these safety reasons, if you call for medical advice we will ask you to come to the ED for further evaluation. 3. If you have any questions regarding these discharge instructions please call the ED at [phone]. SAFETY INFORMATION: In the interest of safety, wellness, and injury prevention; we encourage you to wear your sealbelt, if you smoke; quite smoking, and we encourage family to use a protective helmet for bicycling and other sporting events that present an increased risk for head injury. IF YOUR SYMPTOMS WORSEN OR NEW SYMPTOMS DEVELOP, OR YOU HAVE CONCERNS ABOUT YOUR CONDITION; OR IF YOUR CONDITION WORSENS WHILE YOU ARE WAITING FOR YOUR FOLLOW UP AP POINTMENT; EITHER CONTACT YOUR PRIMARY CARE DOCTOR, THE PHYSICIAN WHOSE NAME AND NUMBER YOU WERE GIVEN, OR RETURN TO THE ED IMMEDIATELY. ELIE CONTE APRN Apr 24, 2021 12:57
--- NOTE | 2021-04-24 13:33 | RAD ---
CT CERVICAL SPINE WO, CT HEAD AND MAXILLOFACIAL WO Date: 04/24/2021 12:39 PM Clinical Indication: FALL, pain Comparison: None. Technique: Axial computed tomographic images were obtained of the head, maxillofacial structures, an d cervical spine without contrast. Multiplanar reconstructions were performed. One or more of the fol lowing dose reduction techniques were utilized: Automated exposure control (AEC), Adjustment of mA an d/or kV according to patient size, Use of iterative reconstruction technique such as ASiR, CT scan do ne according to ALARA and image gently/image wisely CT Head Findings: Mild generalized cerebral and cerebellar volume loss. Mild nonspecific periventricular hypoattenuatio n, most commonly seen with chronic small vessel ischemic disease. No intra- or extra-axial mass or fluid collection. No acute hemorrhage. The ventricles are normal in size, shape, and morphology. The palomino-white matter junction is normal. The basilar cisterns are paten t. The mastoid air cells are clear. No aggressive osseous lesion or fracture. CT Face Findings: There is no acute facial bone fracture. The paranasal sinuses are clear. Nasal septum is slightly deviated to the right The orbits are normal . The globes are intact. CT Cervical Spine Findings: The cervical spine is normally aligned. No acute fracture. No aggressive lytic or blastic osseous les ions. Moderate multilevel degenerative disc space height loss. Multilevel mild spinal canal stenosis second sujatha to disc protrusions and marginal osteophytes. Multilevel moderate neuroforaminal narrowing second sujatha to uncovertebral arthrosis. Multilevel moderate facet arthrosis. The thyroid gland is normal. No cervical lymphadenopathy. Bilateral carotid atherosclerosis. The visu alized aerodigestive tract is normal. The visualized portions of the lungs are clear. Impression: 1. No acute intracranial process. 2. No acute facial bone fracture. 3. No acute osseous abnormality of the cervical spine Electronically signed by: Petar Bob MD (04/24/2021 1:30 PM) [id number]
--- NOTE | 2021-04-24 13:37 | RAD ---
EXAM: Chest and right ribs, 3 views. HISTORY: Fall. COMPARISON: None. FINDINGS: A frontal view of the chest and 2 views of the right ribs are obtained. There is no fractur e, dislocation or subluxation. The heart is normal in size. No displaced rib fracture is seen. IMPRESSION: No acute pulmonary or osseous finding. Electronically signed by: Yenny Dockery MD (04/24/2021 1:35 PM) [id number]
[2021-04-24 14:20] VITALS: BP 136/61
--- NOTE | 2021-04-24 14:35 | RAD ---
XR KNEE 4 VIEWS WITH PATELLA_RT History: Fall Comparison: None. Technique: 4 views of the right knee. Findings: Osseous mineralization is normal. No acute fracture or dislocaton. Tricompartment minimal osteophyte formation. No significant knee effusion. There is prominent suprapatellar subcutaneous edema. The mimi driceps and patella tendons appear intact. Impression: 1. Superficial soft tissue swelling without acute osseous abnormality of the right knee. Electronically signed by: Ranjan Hill MD (04/24/2021 2:33 PM) [facility]
--- NOTE | 2021-04-26 19:29 | EKG ---
[facility] [address] [place] [address] Test Date: 2021-04-24 Test Time: 12:27:30 Pat Name: KAMRON RAMIREZDepartment: Room: Gender: F [employer]: : 1940 Requested By: ELIE CONTE Order Number: [id number] Reading MD: Measurements Intervals [place] Rate: 60 P: 53 [place]: 156 QRS: 59 QRSD: 88 T: 90 QT: 400 QTc: 404 Interpretive Statements SINUS RHYTHM T ABNORMALITY IN ANTERIOR LEADS LATERAL LEADS ABNORMAL ECG RI6.02 No previous ECG available for comparison
== END 2021-04-24 14:33 | disposition home or self-care (01) ==
LOC: ER 11:23
DX: R51.9 Headache, unspecified (principal); N64.4 Mastodynia; M25.561 Pain in right knee; G89.11 Acute pain due to trauma; E11.9 Type 2 diabetes mellitus without complications; I10 Essential (primary) hypertension; W18.39XA Other fall on same level, initial encounter; Y93.89 Activity, other specified; Y92.098 Other place in other non-institutional residence as the place of occurrence of the external cause; Y99.8 Other external cause status
CPT/HCPCS: 70450; 70486; 71101; 72125; 73564; 93005; 99285-25